=== PATIENT | male | born 1965 | race Caucasian/White ===

== ENCOUNTER 2018-07-02 05:51 | Inpatient (IN) | payer OTHER ==
[2018-07-02] MEDS ORDERED: INDOCYANINE GREEN 25 MG VIAL IV ONE (06:09)
[2018-07-02] MEDS ORDERED: LR 1,000 ML IV ONE (06:11)
[2018-07-02] MEDS ORDERED: BUPIVACAINE 0.5% 30 ML SDV ONE (06:14)
[2018-07-02] MEDS ORDERED: MIDAZOLAM 2 MG/2 ML VIAL IVP ONE (06:44)
--- NOTE | 2018-07-02 06:45 | PDANEPAE ---
ANE Past Medical History - Cardiovascular History Hx Hypertension: No Hx Arrhythmias: No Hx Chest Pain: No Hx Coronary Artery / Peripheral Vascular Disease: No Hx CHF / Valvular Disease: No Hx Palpitations: No - Pulmonary History Hx COPD: No Hx Asthma/Reactive Airway Disease: No Hx Recent Upper Respiratory Infection: No Hx Oxygen in Use at Home: No Hx Sleep Apnea: No Sleep Apnea Screening Result - Last Documented: Negative - Neurologic History Hx Cerebrovascular Accident: No Hx Seizures: No Hx Dementia: No - Endocrine History Hx Diabetes: No - Renal History Hx Renal Disorders: No - Liver History Hx Hepatic Disorders: No - Neurological & Psychiatric Hx Hx Neurological and Psychiatric Disorders: No - Cancer History Hx Cancer: No - Congenital Disorder History Hx Congenital Disorders: No - GI History Hx Gastrointestinal Disorders: No - Other Health History Other Health History: current cold using dayquil and nyquil. rash in places currently - Chronic Pain History Chronic Pain: No - Surgical History Prior Surgeries: tonsillectomy as child ANE Review of Systems Review of Systems: - Exercise capacity METS (RN): 4 METS ANE Patient History - Allergies Allergies/Adverse Reactions: No Known Allergies Allergy (Verified 06/28/18 11:08) - Home Medications Home medications: home medication list seen and reviewed Home Medications: Mucinex 07/02/18 [Last Taken 07/02/18 00:00] - NPO status NPO Status: no food or drink >8 hours - Anes Hx Anes Hx: no prior problems - Smoking Hx Smoking Status: Never smoked - Family Anes Hx Family Hx Anesthesia Complications: none ANE Labs/Vital Signs - Vital Signs Height: 170.18 cm Weight: 102.058 kg ANE Physical Exam - Airway Neck exam: FROM Mallampati Score: Class 3 Mouth exam: normal dental/mouth exam - ASA Status ASA Status: II ANE Anesthesia Plan Anesthesia Plan: general endotracheal anesthesia
[2018-07-02] MEDS ORDERED: PROPOFOL 200 MG/20 ML VIAL ONE ×2 (06:57→09:20)
[2018-07-02] MEDS ORDERED: fentaNYL 100 MCG/2 ML INJ ONE ×3 (06:57→10:19)
[2018-07-02] MEDS ORDERED: ROCURONIUM 50 MG/5 ML VIAL ONE (07:01)
--- NOTE | 2018-07-02 07:08 | PDHPUP ---
History & Physical Update H&P update statement: This history and physical update is based on an assessment of the patient which was completed after admission or registration (within 24 hours), but prior to the surgery/procedure. H&P update: H&P reviewed & patient examined, no change in patient's condition since H&P completed
[2018-07-02] MEDS ORDERED: METOCLOPRAMIDE 10 MG/2 ML VIAL ONE (07:10)
[2018-07-02] MEDS ORDERED: RANITIDINE 50 MG/2 ML VIAL ONE (07:11)
[2018-07-02] MEDS ORDERED: DEXAMETHASONE 4 MG/ML VIAL ONE ×4 (07:11→10:52)
[2018-07-02] MEDS ORDERED: cefOXitin SODIUM 2 GM in NS 100 ML IV ONE (07:15)
[2018-07-02] MEDS ORDERED: GLYCOPYRROLATE 0.2 MG/1 ML VIAL ONE ×3 (07:43→09:00)
[2018-07-02] MEDS ORDERED: PHENYLEPHRINE HCL 100 MCG/ML SYR ONE (07:54)
[2018-07-02] MEDS ORDERED: ePHEDrine SULFATE 25 MG/5 ML SYR ONE (07:57)
[2018-07-02] MEDS ORDERED: ALBUTEROL HFA ANES ONLY 200 PUFFS/8.5 GM MDI IH ONE (08:19)
[2018-07-02] MEDS ORDERED: KETOROLAC 30 MG/1 ML SDV ONE (08:21)
[2018-07-02] MEDS ORDERED: ONDANSETRON 4 MG/2 ML VIAL ONE ×6 (08:21→10:19)
[2018-07-02] MEDS ORDERED: NEOSTIGMINE METHYLSULFATE 5 MG/5 ML SYR ONE (09:00)
[2018-07-02] MEDS ORDERED: LABETALOL HCL 5 MG/ML 20 ML MDV IVP PRN (09:07)
[2018-07-02] MEDS ORDERED: METOCLOPRAMIDE 10 MG/2 ML VIAL IVP PRN (09:07)
[2018-07-02] MEDS ORDERED: NALOXONE HCL 0.4 MG/ML INJ IVP PRN (09:07)
[2018-07-02] MEDS ORDERED: MEPERIDINE 25 MG/0.5 ML AMP IVP PRN (09:07)
[2018-07-02] MEDS ORDERED: DEXAMETHASONE 4 MG/ML VIAL IVP PRN (09:07)
[2018-07-02] MEDS ORDERED: LR 500 ML IV PRN (09:07)
[2018-07-02] MEDS ORDERED: ALBUTEROL 3 ML DEYVIAL IH PRN (09:07)
[2018-07-02] MEDS ORDERED: ONDANSETRON 4 MG/2 ML VIAL IVP PRN ×2 (09:07→15:56)
[2018-07-02] MEDS ORDERED: DIAZEPAM 5 MG/ML 1 ML SYR IVP PRN (09:07)
[2018-07-02] MEDS ORDERED: PROMETHAZINE HCL 25 MG/ML INJ IVP PRN (09:07)
--- NOTE | 2018-07-02 09:44 | POSTOPPROG ---
Post Op Note Date of Operation: 07/02/18 Surgeon: Fabio Green Education Assistant: Meg Kimble Anesthesiologist: Cielo Marroquin Anesthesia: GET(General Endotracheal) Pre-op Diagnosis: cholelithiasis Post-op Diagnosis: same, cholecystitis Procedure: robotic assisted lap sundar Findings: on large stone and multiple smaller stones, adhesions, Inf/Abcess present in the surg proc area at time of surgery?: Yes Depth: Organ Space EBL: Minimal Complications: none Drains: Leonid King Specimen(s): gallbladder to pathology and for culture
[2018-07-02] MEDS: fentaNYL 100 MCG/2 ML INJ IVP PRN ×2 (10:23→10:31)
--- NOTE | 2018-07-02 10:25 | POSTANESTH ---
Post Anesthetic Evaluation Cardiovascular Status: Normal, Stable Respiratory Status: Normal, Stable Level of Consciousness/Mental Status: Can Participate in Eval, Mildly Sleepy, Arousable Pain Control: Adequate, Prn Tx Ordered Nausea/Vomiting Control: Adequate, Prn Tx Ordered Complications Possibly Related to Anesthesia: None Noted
[2018-07-02] MEDS ORDERED: PROMETHAZINE HCL 25 MG/ML INJ ONE (10:46)
[2018-07-02] MEDS ORDERED: HYDROmorphONE/DILAUDID 2 MG/ML INJ ONE (11:08)
[2018-07-02] MEDS: HYDROmorphONE/DILAUDID 2 MG/ML INJ IVP PRN ×2 (11:11→11:29)
[2018-07-02] MEDS ORDERED: HYDROCODONE/APAP 5/325 TAB PO PRN (13:39)
[2018-07-02] MEDS: KETOROLAC 15 MG/1 ML SDV IVP SCH ×2 (17:37→22:07)
[2018-07-02] MEDS: HYDROCODONE/APAP 5/325 TAB PO PRN (20:47)
[2018-07-02] MEDS: GUAIFENESIN/DM 10 ML UDCUP PO PRN (20:48)
[2018-07-02] MEDS: DEXTROMETHORPHAN PO SCH (21:13)
[2018-07-02] MEDS: GUAIFENESIN PO SCH (21:13)
--- NOTE | 2018-07-02 21:15 | GOP ---
[f rep st] OPERATIVE REPORT DATE OF OPERATION: 07/02/2018 SURGEON: Fabio Green MD FURNACE SETTER: ANIA Dunn. ANESTHESIOLOGIST: Cielo Marroquin MD. PREOPERATIVE DIAGNOSIS: Symptomatic cholelithiasis and cholecystitis. POSTOPERATIVE DIAGNOSIS: Symptomatic cholelithiasis and cholecystitis. PROCEDURE PERFORMED: Robotic assisted laparoscopic cholecystectomy. FINDINGS: The patient was found to have a thickened inflamed gallbladder markedly obscured by adhesions. The ducts were small. There were multiple large stones in the gallbladder and a moderate amount of inflammation around the gallbladder. ESTIMATED BLOOD LOSS: Negligible. DESCRIPTION OF PROCEDURE: The patient was taken to the operating room where he received a satisfactory general endotracheal anesthesia by Dr. Marroquin. He was placed in supine position and prepped and draped in the usual sterile fashion. An infraumbilical incision was made. A Veress needle was inserted. Pneumoperitoneum established. Trocar was introduced. Laparoscope introduced. Good visualization was obtained. Two other trocars were placed under direct vision in the upper abdomen. The robot was then brought in and docked to the camera port in the infraumbilical area. The robot was then targeted at the gallbladder area and then the remaining 3 trocars were docked to the robot. Instruments were introduced. The gallbladder was freed up using electrocautery and taking down the adhesions until the gallbladder could be visualized and grasped. It was then elevated up. Adhesiolysis continued until the entire gallbladder could be visualized. The gallbladder was markedly elevated up. The cystic triangle was carefully dissected free. The cystic duct and cystic artery were exposed. A good clear view was obtained. Using Firefly with dye injection the common duct was well visualized. The cystic duct did not visualize suggesting a complete obstruction of the cystic duct. The cystic duct was then multiply hemoclipped and divided. Further dissection cleared the cystic artery, which was multiply hemoclipped and divided. The peritoneum of the gallbladder was then incised. The gallbladder was dissected free from the hepatic fossa. There was some gallstone spillage. An roofer assistant port was placed in the right upper quadrant for suctioning and the gallbladder dissection continued until the gallbladder could be completely freed. Hemostasis was assured. The gallbladder and some of the stones were placed in the specimen bag and then extracted through the camera port, which had been enlarged to a 10/12 trocar. The wound was copiously irrigated. Further material was suctioned free until there was no remaining debris. Hemostasis was assured. Trocars were then removed under direct vision, and trocar sites were closed with 0 Vicryl for the fascia, 4-0 Monocryl subcuticular stitch for the skin. All layers were infiltrated with Marcaine. He tolerated the procedure well. It should be noted a small accessory duct was also seen on the backside of the gallbladder coming from the liver bed. This was hemoclipped. Because of that, a small 15 round silicone drain was brought in through one of the trocar sites and placed in Morison's pouch and the hepatic fossa. It was secured at the exit site with 3-0 nylon suture and connected to a suction drain. He tolerated the procedure well. He was taken to the recovery room in good condition. COMPLICATIONS: There were no complications. /[id number]/MODL MTDD
[2018-07-02] MEDS: HYDROmorphONE/DILAUDID 1 MG/ML INJ IVP PRN (22:09)
[2018-07-03] MEDS: KETOROLAC 15 MG/1 ML SDV IVP SCH ×4 (03:10→21:50)
[2018-07-03] MEDS: HYDROCODONE/APAP 5/325 TAB PO PRN ×4 (04:33→20:05)
[2018-07-03] MEDS ORDERED: ENOXAPARIN 40 MG/0.4 ML SYR SC SCH (09:00)
[2018-07-03] MEDS: GUAIFENESIN PO SCH ×2 (09:27→20:07)
[2018-07-03] MEDS: DEXTROMETHORPHAN PO SCH ×2 (09:27→20:07)
--- NOTE | 2018-07-03 09:29 | ASMTCMCOM ---
CM Note CM Note Notes: Pt is a 53 y/o man admitted for gallstones. Pt had surgery w/ Dr. Green. Pt observed walking around the unit independently. Pt should not have any d/c needs. No therapies ordered at this time. CM available for changes. Plan: Independent Date Signed: 07/03/2018 09:29 AM Electronically Signed By:ANGELIA Richards
[2018-07-03] MEDS ORDERED: IBUPROFEN 600 MG TAB PO PRN (11:01)
[2018-07-03] MEDS ORDERED: ONDANSETRON DISINTEGRATING 4 MG TAB PO PRN (11:03)
[2018-07-03] MEDS: GUAIFENESIN/DM 10 ML UDCUP PO PRN ×2 (11:59→21:53)
--- NOTE | 2018-07-03 12:11 | SOAPPROG ---
SOAP Progress Note Assessment/Plan: Assessment/Plan: 53 Y M s/p robotic assisted lap sundar for cholelithiasis, cholecystitis, POD#1. Possible bile leak. Patient had accessory duct in liver bed. Left a drain in place. Drainage is bilious tinged. Could be spilled bile versus leak. LFTs mildly elevated--which is to be expected. Has had nausea and pain, but these improved since last night. Continue to monitor. Abx for bile spillage, possible contamination. Continue KARMEN drain for both treatment and diagnostics. Low fat diet. Hold chemical VTE ppx in case of need for ERCP. LFTs in am. Clears after MN. If not better, then GI consult tomorrow. Suspect he will be fine and be ready for d/c tomorrow, but needs continued observation overnight. Also seen by Dr. Green. S: pain meds help. worse pain with walking. O2 needs improved. eating fine. nausea better. O: alert, nad, mmm, no scleral icterus ctab, rrr, abd soft, inc cdi, drain seroanguinous with bilious tinge. 07/03/18 12:06 Objective: Vital Signs Temp Pulse Resp BP Pulse Ox 36.5 C 76 18 155/94 H 91 L 07/03/18 11:50 07/03/18 11:50 07/03/18 11:50 07/03/18 11:50 07/03/18 11:50 Microbiology 07/02/18 09:12 Gram Stain - Final Other - Eswab 07/02/18 07/03/18 07/04/18 05:59 05:59 05:59 Intake Total 1500 Output Total 235 Balance 1265 ICD10 Worksheet Patient Problems: Problems Problem Status Onset Cholecystitis Acute - ICD10 Problem Qualifiers (1) Cholecystitis
[2018-07-03] MEDS: AMOXICILLIN/CLAVULANATE POT 875/125 MG TAB PO SCH ×2 (13:24→20:05)
--- NOTE | 2018-07-03 14:51 | PDMN ---
Medical Necessity Medical necessity: Change to inpt as of 07/03/18 @14:38, pt meets inpt criteria per MD order and [facility] S-365, Cholecystectomy by Laparoscopy. 53 y/o s/p robotic assisted lap sundar for cholelithiasis/cholecystitis. Upgraded to inpt for possible bile leak, abx's started for bile spillage, possible contamination, cont KARMEN drain for tx and diagnostics, elevated LFT's- repeat in AM, IV Toradol for pain in addition to PO's, may need GI consult in AM if not improving. Est LOS>2Mn for ongoing management of above.
[2018-07-04] MEDS: HYDROCODONE/APAP 5/325 TAB PO PRN ×4 (01:33→20:32)
[2018-07-04] MEDS: HYDROmorphONE/DILAUDID 1 MG/ML INJ IVP PRN (02:49)
[2018-07-04] MEDS: KETOROLAC 15 MG/1 ML SDV IVP SCH ×2 (05:14→12:11)
[2018-07-04] MEDS: AMOXICILLIN/CLAVULANATE POT 875/125 MG TAB PO SCH ×2 (08:13→20:31)
--- NOTE | 2018-07-04 08:13 | SOAPPROG ---
SOAP Progress Note Assessment/Plan: Assessment/Plan: 53 Y M s/p robotic assisted lap sundar for cholelithiasis, cholecystitis, POD#2. Possible bile leak. Patient had accessory duct in liver bed. Left a drain in place. Drainage is bilious tinged although output decreased. Could be spilled bile versus leak. LFTs mildly elevated, better today. Nausea resolved, but still a great deal of pain--in right shoulder and "deep" abdomen. HIDA scan today. Clears until results. If HIDA + for leak, consider GI consult and ERCP. Continue drain and abx. Hold chemical VTE ppx in case of need for ERCP. S: pain meds help. slept ok. tolerating diet. O: alert, nad, mmm, no scleral icterus ctab, rrr, abd soft, inc cdi, drain seroanguinous with bilious tinge. 07/04/18 08:10 Objective: Vital Signs Temp Pulse Resp BP Pulse Ox 36.5 C 67 18 119/76 92 07/04/18 04:34 07/04/18 04:34 07/04/18 04:34 07/04/18 04:34 07/04/18 04:34 Microbiology 07/02/18 09:12 Gram Stain - Final Other - Eswab 07/03/18 07/04/18 07/05/18 05:59 05:59 05:59 Intake Total 1500 750 Output Total 235 30 Balance 1265 204 ICD10 Worksheet Patient Problems: Problems Problem Status Onset Cholecystitis Acute - ICD10 Problem Qualifiers (1) Cholecystitis
[2018-07-04] MEDS: DEXTROMETHORPHAN PO SCH ×2 (10:51→20:33)
[2018-07-04] MEDS: GUAIFENESIN PO SCH ×2 (10:51→20:33)
--- NOTE | 2018-07-04 14:05 | GCON ---
[f rep st] CONSULTATION DATE OF CONSULTATION: 07/04/2018 REFERRING PHYSICIAN: Fabio Green MD CHIEF COMPLAINT: Abnormal imaging of the biliary tract. HISTORY OF PRESENT ILLNESS: I am asked to see this patient consultation by Dr. Fabio Green for chi ef complaint of bile leak. The patient is a pleasant 53-year-old with symptomatic cholelithiasis, un derwent cholecystectomy with robot assistance on 07/02/2018. The patient had some pain postoperative ly. HIDA scan done today shows a bile leak. The patient was noted to have accessory bile duct that was clipped during the procedure. The patient notes pain is somewhat better now but does note should er pain. He has no prior history of abdominal surgeries. No GERD symptoms or dysphagia. The patien t is adopted. No known family history. ALLERGIES: No reported drug allergies. HOME MEDICATION: Reported as Mucinex and Gatzke. PAST MEDICAL HISTORY: Obesity, hypertension, symptomatic gallstones. SOCIAL HISTORY: He denies alcohol use. FAMILY HISTORY: Patient is adopted. REVIEW OF SYSTEMS: I performed a complete review of systems which was negative except for the pertin ent positives and negatives noted above in the HPI. PHYSICAL EXAM: VITAL SIGNS: Afebrile at 36.4, BP 121/79, pulse 75. GENERAL: He is alert and orien charlie. EYES: No scleral icterus. HENT: No oral lesions. CARDIOVASCULAR: Regular rhythm. CHEST: Clear to auscultation. ABDOMEN: Obese. There are healing laparoscopic scars. A drain is in place. Nontender. NEUROLOGIC: Nonfocal. SKIN: No lesions. LABORATORY DATA: A HIDA scan performed today does document biliary leak. LFTs today, AST 41, ALT 75 , alkaline phosphatase 77, total bilirubin is 1.1. ASSESSMENT: Patient is status post cholecystectomy with evidence of bile leak, although otherwise we ll without evidence of infection, peritonitis, or cholangitis. PLAN: I would recommend ERCP for stent placement to aid in healing of biliary leak which we can arra nge today with Anesthesia. Thank you for the consult. /[id number]/MODL
--- NOTE | 2018-07-04 15:42 | ASMTCMCOM ---
CM Note CM Note Notes: Pt is s/p lap sundar and has a bile leak. An ERCP with stent placement is planned today for repair of the biliary leak. Anticipate pt will d/c with no CM needs but will continue to follow. D/C plan: anticipate home independent Date Signed: 07/04/2018 03:42 PM Electronically Signed By:ARMANDO Day
[2018-07-04] MEDS ORDERED: LR 1,000 ML IV ONE (16:41)
--- NOTE | 2018-07-04 17:51 | PDANEPAE ---
ANE History of Present Illness ERCP ANE Past Medical History - Cardiovascular History Hx Hypertension: No Hx Arrhythmias: No Hx Chest Pain: No Hx Coronary Artery / Peripheral Vascular Disease: No Hx CHF / Valvular Disease: No Hx Palpitations: No - Pulmonary History Hx COPD: No Hx Asthma/Reactive Airway Disease: No Hx Recent Upper Respiratory Infection: No Hx Oxygen in Use at Home: No Hx Sleep Apnea: No Sleep Apnea Screening Result - Last Documented: Negative - Neurologic History Hx Cerebrovascular Accident: No Hx Seizures: No Hx Dementia: No - Endocrine History Hx Diabetes: No Hypothyroid: No Hyperthyroid: No Obesity: moderate - Renal History Hx Renal Disorders: No - Liver History Hx Hepatic Disorders: No - Neurological & Psychiatric Hx Hx Neurological and Psychiatric Disorders: No - Cancer History Hx Cancer: No - Congenital Disorder History Hx Congenital Disorders: No - GI History Hx Gastrointestinal Disorders: No - Other Health History Other Health History: current cold using dayquil and nyquil. rash in places currently - Chronic Pain History Chronic Pain: No - Surgical History Prior Surgeries: tonsillectomy as child ANE Review of Systems Review of systems is: negative Review of Systems: - Exercise capacity Exercise capacity: >=4 METS METS (RN): 4 METS ANE Patient History - Allergies Allergies/Adverse Reactions: No Known Allergies Allergy (Verified 06/28/18 11:08) - Home Medications Home medications: home medication list seen and reviewed Home Medications: guaiFENesin/DEXTROMETHORPHAN [Mucinex Dm ER 600-30 mg Tablet] 1 each PO BID [Last Taken 07/02/18 00:00] - NPO status NPO Status: no food or drink >8 hours NPO Since - Liquids (Date): 07/04/18 NPO Since - Liquids (Time): 01:00 NPO Since - Solids (Date): 07/03/18 NPO Since - Solids (Time): 19:00 - Anes Hx Anes Hx: no prior problems - Smoking Hx Smoking Status: Never smoked - Family Anes Hx Family Hx Anesthesia Complications: none ANE Labs/Vital Signs - Vital Signs Vital Signs: reviewed preoperatively; see RN documention for details Blood Pressure: 138/83 Heart Rate: 97 Respiratory Rate: 16 O2 Sat (%): 88 Height: 170.18 cm Weight: 102.058 kg ANE Physical Exam - Airway Neck exam: FROM Mallampati Score: Class 3 Mouth exam: normal dental/mouth exam - Pulmonary Pulmonary: no respiratory distress, reduced air movement - Cardiovascular Cardiovascular: regular rate and rhythym - ASA Status ASA Status: II ANE Anesthesia Plan Anesthesia Plan: general endotracheal anesthesia
[2018-07-04] MEDS ORDERED: fentaNYL 100 MCG/2 ML INJ ONE (17:55)
[2018-07-04] MEDS ORDERED: PROPOFOL 200 MG/20 ML VIAL ONE (17:55)
[2018-07-04] MEDS ORDERED: IOTHALAMATE MEG (CONRAY) 50 ML VIAL IV ONE (17:58)
[2018-07-04] MEDS ORDERED: INDOMETHACIN 50 MG SUPP PR ONE ×2 (17:58→18:10)
[2018-07-04] MEDS ORDERED: ROCURONIUM 50 MG/5 ML VIAL ONE (18:00)
[2018-07-04] MEDS ORDERED: ONDANSETRON 4 MG/2 ML VIAL ONE (18:02)
[2018-07-04] MEDS ORDERED: DEXAMETHASONE 4 MG/ML VIAL ONE ×2 (18:02)
[2018-07-04] MEDS ORDERED: GLUCAGON HCL 1 MG VIAL ONE (18:34)
[2018-07-04] MEDS ORDERED: SUGAMMADEX SODIUM 200 MG/2 ML VIAL IVP ONE (18:49)
[2018-07-04] MEDS ORDERED: PHENYLEPHRINE HCL 100 MCG/ML SYR IVP PRN (19:14)
[2018-07-04] MEDS ORDERED: MEPERIDINE 25 MG/0.5 ML AMP IVP PRN (19:14)
[2018-07-04] MEDS ORDERED: fentaNYL 100 MCG/2 ML INJ IVP PRN (19:14)
[2018-07-04] MEDS ORDERED: oxyCODONE IR 5 MG TAB PO PRN (19:14)
[2018-07-04] MEDS ORDERED: DEXAMETHASONE 4 MG/ML VIAL IVP PRN (19:14)
[2018-07-04] MEDS ORDERED: HYDROmorphONE/DILAUDID 2 MG/ML INJ IVP PRN (19:14)
[2018-07-04] MEDS ORDERED: LR 500 ML IV PRN (19:14)
[2018-07-04] MEDS ORDERED: ALBUTEROL 3 ML DEYVIAL IH PRN (19:14)
[2018-07-04] MEDS ORDERED: METOCLOPRAMIDE 10 MG/2 ML VIAL IVP PRN (19:14)
[2018-07-04] MEDS ORDERED: ONDANSETRON 4 MG/2 ML VIAL IVP PRN (19:14)
[2018-07-04] MEDS ORDERED: DIAZEPAM 5 MG/ML 1 ML SYR IVP PRN (19:14)
[2018-07-04] MEDS ORDERED: ACETAMINOPHEN 500 MG TAB PO PRN (19:14)
[2018-07-04] MEDS ORDERED: NALOXONE HCL 0.4 MG/ML INJ IVP PRN (19:14)
[2018-07-04] MEDS ORDERED: LABETALOL HCL 5 MG/ML 20 ML MDV IVP PRN (19:14)
[2018-07-04] MEDS ORDERED: PROMETHAZINE HCL 25 MG/ML INJ IVP PRN (19:14)
--- NOTE | 2018-07-04 19:19 | GIREPORT ---
[facility] - Endoscopy Department Patient Name: Feliberto Montenegro Procedure Date: 07/04/2018 5:50 PM Patient Type: Inpatient Attending MD/ ER Physician: Pk Winston MD Procedure: ERCP Indications: Treatment of bile leak Providers: Pk Winston MD Referring MD: Fabio Keen Medicines: General Anesthesia, Indomethacin 100 mg [place] Complications: No immediate complications. Estimated blood loss: Minimal. Description of Procedure: After obtaining informed consent, the scope was passed under direct vis ion. Throughout the procedure, the patient's blood pressure, pulse, and oxyg en saturations were monitored continuously. The Duodenalscope was introduc ed through the mouth, and advanced to the duodenum and used to inject cont rast into the bile duct. The ERCP was accomplished without difficulty. The patient tolerated the procedure well. Findings: The calculating machine operator film was normal. The esophagus was successfully intubated und er direct vision. The scope was advanced to a normal major papilla in the descending duodenum without detailed examination of the pharynx, larynx and associated structures, and upper GI tract. The upper GI tract was gross ly normal. The bile duct was deeply cannulated with the traction (standard ) sphincterotome. Contrast was injected. I personally interpreted the lisa e duct images. Ductal flow of contrast was adequate. An 11 mm biliary sphincterotomy was made with a braided traction (standard) sphincteroto me using ERBE electrocautery. There was no post-sphincterotomy bleeding. T he biliary tree was swept with a 12 mm balloon starting at the bifurcation . Debris was swept from the duct. One 7 Fr by 7 cm plastic stent with a s kinjal external flap and a single internal flap was placed 5 cm into the commo n bile duct. Bile flowed through the stent. The stent was in good positio n. A standard esophagogastroduodenoscopy scope was used for the examination of the upper gastrointestinal tract. The scope was passed under direct vis ion through the upper GI tract. LA Grade C (one or more mucosal breaks continuous between tops of 2 or more mucosal folds, less than 75% circumference) esophagitis with no bleeding was found in the lower thir d of the esophagus. Estimated Blood Loss: Estimated blood loss was minimal. Post Op Diagnosis: - LA Grade C reflux esophagitis. Rule out Yao's esophagus. - A biliary sphincterotomy was performed. - The biliary tree was swept and debris was found. - One plastic stent was placed into the common bile duct. Recommendation: - Clear liquid diet. Advance as tolerated. - Use Protonix (pantoprazole) 40 mg PO daily. Take 30-60 minutes before breakfast - Await path results. - My office will call with the pathology result with 5-7 days. If you h ave not heard from my office by 12-14, do not assume the pathology is josefina l, please call [phone] to get the pathology results. - Follow an antireflux regimen PRN. - Repeat ERCP in 4 weeks to remove stent. - If pathology is c/w Yao's, then PPI intermediate and EGD in one year . - Return patient to [facility] for ongoing care. - Thank you for allowing me to help in your patient's care. Do not hesi more to call with any questions. Attending Participation: I personally performed the entire procedure. Tish Nova M.D Pk Winston MD 07/04/2018 7:19:28 PM This report has been signed electronicallyMatthew MD Tish Number of Addenda: 0 Note Initiated On: 07/04/2018 5:50 PM [email or web address]
[2018-07-05] MEDS: HYDROCODONE/APAP 5/325 TAB PO PRN ×2 (04:32→08:09)
[2018-07-05] MEDS: AMOXICILLIN/CLAVULANATE POT 875/125 MG TAB PO SCH (08:08)
[2018-07-05] MEDS: DEXTROMETHORPHAN PO SCH (08:09)
[2018-07-05] MEDS: GUAIFENESIN PO SCH (08:09)
[2018-07-05] MEDS ORDERED: PANTOPRAZOLE SODIUM 40 MG TAB PO SCH (09:00)
[2018-07-05 09:04] VITALS: BP 96/69
--- NOTE | 2018-07-05 09:47 | SOAPPROG ---
SOAP Progress Note Assessment/Plan: Assessment/Plan: 53 Y M s/p robotic assisted lap sundar for cholelithiasis, cholecystitis, POD#3 S/p ERCP with stenting for bile leak. Esophagitis found as well. Protonix bid started. Pain much improved today. Tolerating clears. Eager to be discharged. Dispo: home today. Will d/c with drain. S: Feels much better. Pain well controlled. O: Alert Afebrile VSS RRR No increased WOB Abdomen: soft, attp, incisions cdi, nondistended, KARMEN drain with small amount of bilious drainage. 07/05/18 09:44 Objective: Vital Signs Temp Pulse Resp BP Pulse Ox 36.5 C 63 16 96/69 L 91 L 07/05/18 09:00 07/05/18 09:00 07/05/18 09:00 07/05/18 09:00 07/05/18 09:00 Microbiology 07/02/18 09:12 Gram Stain - Final Other - Eswab Laboratory Results 07/05/18 08:20 07/04/18 07/05/18 07/06/18 05:59 05:59 05:59 Intake Total 750 2070 Output Total 30 175 Balance 720 7413 ICD10 Worksheet Patient Problems: Problems Problem Status Onset Cholecystitis Acute
--- NOTE | 2018-07-05 10:33 | PDHOMEO2F ---
Home Oxygen Face to Face Home Orders: I certify that a physician or a nurse practitioner or physician's personnel assistant has had a [id number]-oaam encounter with this patient on the date of this order due to the diagnosis listed, which relates to the primary reason the patient requires home oxygen. Alternative treatments have been tried, or considered, and deemed ineffective. It is anticipated that supplemental oxygen will result in improvement with treatment. Home oxygen qualifying diagnosis: Hypoxia SpO2 on room air (%): 84 Frequency of home oxygen needed: continuous Home oxygen liters per minute: .5 Home oxygen delivery device: nasal cannula Concentrator: No E-tanks for mobility and back up: Yes If ordering portable O2, is the patient mobile in the home?: Yes I certify that, based on these findings, the home oxygen is medically necessary for this patient for the following length of time. Length of time home oxygen needed: 1 week
--- NOTE | 2018-07-05 10:52 | SOAPPROG ---
SOAP Progress Note Assessment/Plan: Assessment: Abd pain improved Bile leak post ERCP with Stent Esophagitis Plan: PPI Repeat ERCP to remove stent on 4 weeks Will sign off 07/05/18 10:50 Subjective: cc abd apin Pain much improved post ERCP, no melena Objective: Vital Signs Temp Pulse Resp BP Pulse Ox 36.5 C 75 18 96/69 L 84 L 07/05/18 09:00 07/05/18 10:05 07/05/18 10:05 07/05/18 09:00 07/05/18 10:05 Microbiology 07/02/18 09:12 Gram Stain - Final Other - Eswab Laboratory Results 07/05/18 08:20 07/04/18 07/05/18 07/06/18 05:59 05:59 05:59 Intake Total 750 2070 Output Total 30 175 Balance 720 1895 Physical Exam - Physical Exam General Appearance: alert Respiratory: lungs clear Cardiac/Chest: regular rate, rhythm Abdomen: non-tender, soft ICD10 Worksheet Patient Problems: Problems Problem Status Onset Cholecystitis Acute
--- NOTE | 2018-07-05 11:00 | ASDISCHSUM ---
Discharge Information Plan Status:Home with No Needs Medically Cleared to Leave: Discharge Date: CM D/C Disposition:Home, Routine, Self-Care ADT D/C Disposition:Home, Routine, Self-Care Projected Discharge Date: Transportation at D/C:Family Discharge Delay Reason: Follow-Up Date: Discharge Slot: Final Diagnosis: Placement Information Patient Contact Information Contact Name:MITCHELL Relationship: Address:[address] City:[place] Alternate Phone: State/Zip Code:[place] [address] Email: Financial Information Financial Class:HMO and PPO Plans Primary Plan Desc:[facility] Primary Plan Number:[id number] Secondary Plan Desc: Secondary Plan Number: Assessment Information [facility] CM Progress Note CM Note CM Note Notes: Pt is a 53 y/o man admitted for gallstones. Pt had surgery w/ Dr. Green. Pt observed walking around the unit independently. Pt should not have any d/c needs. No therapies ordered at this time. CM available for changes. Plan: Independent Date Signed: 07/03/2018 09:29 AM Electronically Signed By:ANGELIA Richards LACE LACE Length of stay for Answers: 2 days current admission Acuity / Level of Answers: Yes Care: Did the patient have an inpatient admission? # of Emergency department Answers: 0 visits in the last 6 months Score: 5 Date Signed: 07/05/2018 10:57 AM Electronically Signed By:Jessica Washington RN [facility] CM Progress Note CM Note CM Note Notes: Pt is s/p lap sundar and has a bile leak. An ERCP with stent placement is planned today for repair of the biliary leak. Anticipate pt will d/c with no CM needs but will continue to follow. D/C plan: anticipate home independent Date Signed: 07/04/2018 03:42 PM Electronically Signed By:ARMANDO Day [facility] CM Progress Note CM Note CM Note Notes: Patient is medically ready for discharge today. Met with patient to confirm there were no CM needs, patient states he has a f/u appointment with Dr. Grene in a few days and will f/u with another surgeon in one month for stent removal. No CM needs identified at this time. Family to transport. Plan: Independent Date Signed: 07/05/2018 10:58 AM Electronically Signed By:Jessica Washington RN Intervention Information
[2018-07-07] MEDS ORDERED: IBUPROFEN 600 MG TAB PO PRN (16:00)
== END 2018-07-05 12:15 | disposition home or self-care (01) | DRG 357 ==
LOC: FSGY 05:51 → F3E 15:56 → F1N 17:13 → OBSVTOIN 07-03 14:38
PROVIDERS: ADMIT Surgery; ATTEND Surgery
PROC: 0FT44ZZ Resection of Gallbladder, Percutaneous Endoscopic Approach (ICD-10-PCS; principal; 2018-07-02 07:15)
PROC: 8E0W4CZ Robotic Assisted Procedure of Trunk Region, Percutaneous Endoscopic Approach (ICD-10-PCS; principal; 2018-07-02 07:15)
PROC: 0F798DZ Dilation of Common Bile Duct with Intraluminal Device, Via Natural or Artificial Opening Endoscopic (ICD-10-PCS; 2018-07-04)
PROC: 0FC98ZZ Extirpation of Matter from Common Bile Duct, Via Natural or Artificial Opening Endoscopic (ICD-10-PCS; 2018-07-04)
PROC: 0DB58ZX Excision of Esophagus, Via Natural or Artificial Opening Endoscopic, Diagnostic (ICD-10-PCS; 2018-07-04)
DX: K91.89 Other postprocedural complications and disorders of digestive system (principal); K80.10 Calculus of gallbladder with chronic cholecystitis without obstruction; K21.0 Gastro-esophageal reflux disease with esophagitis
CPT/HCPCS: A9537; C2625; G0378; J0694; J1100; J1170; J1610; J1650; J1885; J2250; J2370; J2405; J2550; J2704; J2710; J2765; J2780; J3010; Q9961

== ENCOUNTER → 2018-08-06 | Outpatient (CLI) | payer OTHER | LOC: EDSTATUS 07:56 → CIMAGING 11:57 | PROVIDERS: ATTEND Internal Medicine Gastroenterology | DX: Z48.89 Encounter for other specified surgical aftercare (principal) | CPT/HCPCS: 74018-PO ==

== ENCOUNTER 2018-08-21 11:29 | Day surgery (SDC) | payer OTHER ==
[2018-08-21] MEDS ORDERED: LR 1,000 ML IV ONE (11:39)
--- NOTE | 2018-08-21 12:51 | PDGENHP ---
History & Physical Chief Complaint: bile leak s/p stent - for tent removal History of Present Illness: lap sundar with bile leak. zendejas's Pertinent Past, Social, Family History: no tobacco, rare alcohol. fhx - adopted. zendejas's Relevant Physical Exam: A+Ox3. CTA. S1S2, RRR. +BS soft nt Cardiorespiratory Assessment: class I
--- NOTE | 2018-08-21 12:52 | PDPROPOC ---
Sedation Plan of Care Sedation Plan of Care: vital signs stable, mental status noted, patient educated of risks, benefits, alternatives, patient can tolerate sedation ASA Classification: ASA 1 Planned drugs: fentanyl, midazolam Mallampati Score: Class 1 Mallampati Reference Image: Patient passed 3-3-2 rule?: Yes
[2018-08-21] MEDS ORDERED: fentaNYL 100 MCG/2 ML INJ ONE (12:59)
[2018-08-21] MEDS ORDERED: MIDAZOLAM 2 MG/2 ML VIAL ONE (12:59)
--- NOTE | 2018-08-21 13:33 | GIREPORT ---
Formerly [facility] Surgical Services - Endoscopy Department Patient Name: Feliberto Montenegro Procedure Date: 08/21/2018 1:06 PM Patient Type: Outpatient Attending MD/ ER Physician: Pk Winston MD Procedure: Upper GI endoscopy Indications: Follow-up of Yao's esophagus, Biliary stent removal Providers: Pk Winston MD Referring MD: Bravo Tillman MD Medicines: Midazolam 6 mg IV, Fentanyl 100 micrograms IV Complications: No immediate complications. Estimated blood loss: Minimal. Description of Procedure: After obtaining informed consent, the endoscope was passed under direct vision. Throughout the procedure, the patient's blood pressure, pulse, and oxygen saturations were monitored continuously. The Endoscope was intro duced through the mouth, and advanced to the third part of duodenum. The uppe r GI endoscopy was accomplished without difficulty. The patient tolerated th e procedure well. 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 The ma ximum longitudinal extent of these mucosal changes was 1 cm in length. Mucosa was biopsied with a cold forceps for histology in a targeted manner in the lower third of the esophagus. One specimen bottle was sent to pathology. A hiatal hernia was present. A previously placed plastic stent was seen at the major papilla. Stent removal was accomplished with a snare. Estimated blood loss: none. The exam was otherwise without abnormality. -- Photo 5 is the stent removed from his ampulla Estimated Blood Loss: Estimated blood loss was minimal. 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 Biopsied. - Hiatal hernia. - Plastic stent in the duodenum. Removed. - The examination was otherwise normal. Recommendation: - Await pathology results. - My office will call with the pathology result with 5-7 days. If you h ave not heard from my office by -14, do not assume the pathology is josefina l, please call [phone] to get the pathology results. - Use Protonix (pantoprazole) 40 mg PO daily. Take once daily 30-60 min utes before breakfast. - Follow an antireflux regimen. - Discharge patient to home (ambulatory). - Repeat upper endoscopy in 2 years for surveillance based on pathology results. - Return to primary care physician as previously scheduled. - Return to endoscopist in 4 months. - Thank you for allowing me to help in your patient's care. Do not hesi more to call with any questions. Attending Participation: I personally performed the entire procedure. Tish Nova M.D Pk Winston MD 08/21/2018 1:32:59 PM This report has been signed electronicallyMatthew MD Tish Number of Addenda: 0 Note Initiated On: 08/21/2018 1:06 PM [email or web address]
[2018-08-21 14:25] VITALS: BP 98/69
== END 2018-08-21 14:30 | disposition home or self-care (01) ==
LOC: FSGY 11:29
PROVIDERS: ATTEND Internal Medicine Gastroenterology
DX: Z46.59 Encounter for fitting and adjustment of other gastrointestinal appliance and device (principal); K22.70 Barrett's esophagus without dysplasia
CPT/HCPCS: J2250; J3010